=== PATIENT | female | born 1995 | race Two or more races ===

== ENCOUNTER 2022-04-14 03:44 | Inpatient (IN) | payer OTHER ==
[~2022-04-14] VITALS: Ht 154.9 cm; Wt 72.6 kg
[~2022-04-14 03:44] MED LIST: PRENATAL 19 CH1 EAC1 PO
== END 2022-04-16 12:20 | disposition home or self-care (01) | DRG 807 ==
LOC: LDR 03:44 → OB/GYN 18:27
PROVIDERS: ADMIT Obstetrics & Gynecology; ATTEND Obstetrics & Gynecology
PROC: 10E0XZZ Delivery of Products of Conception, External Approach (ICD-10-PCS; principal; 2022-04-14)
PROC: 0UQG7ZZ Repair Vagina, Via Natural or Artificial Opening (ICD-10-PCS; 2022-04-14)
PROC: 4A1HXCZ Monitoring of Products of Conception, Cardiac Rate, External Approach (ICD-10-PCS; 2022-04-14)
DX: O71.4 Obstetric high vaginal laceration alone (principal); Z37.0 Single live birth; Z3A.39 39 weeks gestation of pregnancy; Z20.822 Contact with and (suspected) exposure to COVID-19